=== PATIENT | male | born 1960 | race Caucasian/White ===

== ENCOUNTER 2018-07-05 11:28 | Emergency (ER) | payer MEDICAID ==
--- NOTE | 2018-07-05 11:28 | EDM.PDOC ---
ED HPI GENERAL MEDICAL PROBLEM - General Stated Complaint: AMBULANCE Time Seen by Provider: 07/05/18 11:28 Source of Information: Reports: Patient, EMS, EMS Notes Reviewed, RN, RN Notes Reviewed History Limitations: Reports: No Limitations - History of Present Illness INITIAL COMMENTS - FREE TEXT/NARRATIVE: Pt to ER per [facility] with c/o dizziness and weakness. Pt states he had fish on Friday night and began vomiting shortly after. States hx DMII. Upon arrival patient is nauseated, answering questions appropriately. Became unresponsive, apneic, HR down to 40's from 50's. Pt arousable with sternal rub. Patient moved to room 1. Onset: Gradual Onset Date: 07/03/18 - Related Data Allergies Allergy/AdvReac Type Severity Reaction Status Date / Time aspirin Allergy Stomach Verified 07/05/18 11:40 Upset Home Meds: Home Meds Insulin Detemir [Levemir] 40 unit SQ DAILY 09/10/14 [History] Metoprolol Succinate [Toprol XL 100mg] 100 mg PO DAILY 11/22/15 [History] amLODIPine [Norvasc] 5 mg PO DAILY 11/22/15 [History] Aspirin 81 mg PO DAILY 12/01/15 [History] Hydrochlorothiazide 25 mg PO DAILY #30 tablet 12/12/15 [Rx] Insulin Aspart [NovoLOG] 30 unit SUBCUT TIDAC 07/05/18 [History] Past Medical History HEENT History: Reports: Impaired Vision, Other (See Below) Other HEENT History: SCAR ON THE SCLERA OF THE LEFT EYE Cardiovascular History: Reports: High Cholesterol, Hypertension Genitourinary History: Reports: Acute Renal Failure, Diabetic Nephropathy, Renal Calculus, Other (See Below) Other Genitourinary History: NO LONGER RECEIVING DIALYSIS Musculoskeletal History: Reports: Back Pain, Chronic, Gout, Other (See Below) Other Musculoskeletal History: CHRONIC PAIN IN RIGHT KNEE Neurological History: Reports: None Psychiatric History: Reports: None Endocrine/Metabolic History: Reports: Diabetes, Type II Hematologic History: Reports: None Immunologic History: Reports: None Oncologic (Cancer) History: Reports: None Dermatologic History: Reports: Cellulitis - Infectious Disease History Infectious Disease History: Reports: Chicken Pox, Measles, Mumps - Past Surgical History Head Surgeries/Procedures: Reports: None HEENT Surgical History: Reports: None Cardiovascular Surgical History: Reports: None Male Surgical History: Reports: None Endocrine Surgical History: Reports: None Social & Family History - Family History Family Medical History: Noncontributory ED ROS GENERAL - Review of Systems Review Of Systems: ROS reveals no pertinent complaints other than HPI. ED EXAM, GENERAL - Physical Exam Exam: See Below Exam Limited By: Altered Mental Status General Appearance: Lethargic, Mild Distress Eye Exam: Bilateral Eye: PERRL (2, sluggish) Ears: Normal External Exam, Hearing Grossly Normal Nose: Normal Inspection Throat/Mouth: Normal Inspection, Normal Lips, Normal Oropharynx, Normal Voice, No Airway Compromise Head: Atraumatic, Normocephalic Neck: Normal Inspection, Supple, Non-Tender Respiratory/Chest: No Respiratory Distress, No Accessory Muscle Use, Chest Non- Tender, Decreased Breath Sounds, Other (apneic at times) Cardiovascular: Regular Rate, Rhythm, No Edema, No Gallop, No JVD, No Murmur, No Rub, Bradycardia Peripheral Pulses: 1+: Radial (L), Radial (R), Dorsalis Pedis (L), Dorsalis Pedis (R) GI/Abdominal: Normal Bowel Sounds, Soft, Non-Tender (Male) Exam: Deferred Rectal (Males) Exam: Deferred Back Exam: Normal Inspection, Decreased Range of Motion Extremities: Normal Inspection, Normal Range of Motion, Non-Tender, No Pedal Edema, Normal Capillary Refill Neurological: Slow to Respond, Unresponsive (arousable with sternal rub) Psychiatric: Normal Affect, Normal Mood Skin Exam: Warm, Dry, Intact, No Rash, Other (dusky color) Lymphatic: No Adenopathy Course - Vital Signs Last Recorded V/S: Last Vital Signs Temp 97 F 07/05/18 13:02 Pulse 52 L 07/05/18 13:02 Resp 12 07/05/18 13:02 BP 160/60 H 07/05/18 13:05 Pulse Ox 100 07/05/18 13:02 - Orders/Labs/Meds Orders: Active Orders 24 hr Category Date Time Status Blood Glucose Check, Bedside [RC] ONETIME Care 07/05/18 12:58 Active Blood Glucose Check, Bedside [RC] ONETIME Care 07/05/18 12:58 Active EKG Documentation Completion [RC] STAT Care 07/05/18 11:58 Active Peripheral IV Care [RC] . DIRECTED Care 07/05/18 11:31 Active Chest 1V Frontal [CR] Stat Exams 07/05/18 11:59 Ordered Head wo Cont [CT] Stat Exams 07/05/18 12:22 Ordered CULTURE BLOOD [BC] Stat Lab 07/05/18 11:38 Received CULTURE BLOOD [BC] Stat Lab 07/05/18 13:49 Received Sodium Chloride 0.9% [Saline Flush] Med 07/05/18 11:30 Active 10 ml FLUSH ASDIRECTED PRN Blood Culture x2 Reflex Set [OM.PC] Stat Oth 07/05/18 11:30 Ordered Peripheral IV Insertion Adult [OM.PC] Stat Oth 07/05/18 11:30 Ordered Medication Orders Sodium Chloride (Saline Flush) 10 ml FLUSH ASDIRECTED PRN PRN Reason: Keep Vein Open Last Admin: 07/05/18 12:33 Dose: 10 ml Admin: 07/05/18 12:30 Dose: 10 ml Labs: Laboratory Tests 07/05/18 07/05/18 07/05/18 Range/Units 11:38 11:38 11:38 WBC 7.3 (5.0-10.0) 10^3/uL RBC 5.81 (4.6-6.2) 10^6/uL Hgb 17.1 D (14.0-18.0) g/dL Hct 49.9 (40.0-54.0) % MCV 85.9 (80-100) fL MCH 29.4 (27.0-34.0) pg MCHC 34.3 (33.0-35.0) g/dL Plt Count 255 (150-450) 10^3/uL Neut % (Auto) 64.1 (42.2-75.2) % Lymph % (Auto) 26.6 (20.5-50.1) % [place] % (Auto) 5.9 (2-8) % Eos % (Auto) 2.7 (1.0-3.0) % Baso % (Auto) 0.7 (0.0-1.0) % ABG pH (7.35-7.45) ABG pCO2 (35-45) mmHg ABG pO2 (70-100) mmHg ABG HCO3 (22-26) mmol/L ABG O2 Saturation (95-100) % ABG Base Excess ((-2)-(+3)) mmol/L Elie Test O2 Delivery Device Oxygen Flow Rate Sodium 136 (135-145) mmol/L Potassium 3.9 (3.6-5.0) mmol/L Chloride 101 (101-111) mmol/L Carbon Dioxide 22.0 (21.0-31.0) mmol/L Anion Gap 16.9 BUN 31 H (7-18) mg/dL Creatinine 2.4 H (0.6-1.3) mg/dL Est Cr Clr Drug Dosing 37.45 mL/min Estimated GFR (MDRD) 28 BUN/Creatinine Ratio 12.91 Glucose 188 H (74-105) mg/dL POC Glucose (70-105) mg/dl Lactic Acid 2.9 H (0.5-2.2) mmol/L Calcium 8.9 (8.4-10.2) mg/dl Magnesium (1.8-2.5) mg/dL Total Bilirubin 0.8 (0.2-1.0) mg/dL AST 23 (10-42) IU/L ALT 12 (10-60) IU/L Alkaline Phosphatase 72 (42-121) IU/L Troponin I (0.00-0.02) ng/ml B-Natriuretic Peptide (0-100) pg/ml Total Protein 7.4 (6.7-8.2) g/dl Albumin 3.3 (3.2-5.5) g/dl Globulin 4.1 Albumin/Globulin Ratio 0.80 Urine Color (YELLOW) Urine Appearance (CLEAR) Urine pH (5.0-9.0) Ur Specific Metaline (1.005-1.030) Urine Protein (NEGATIVE) Urine Glucose (UA) (NEGATIVE) Urine Ketones (NEGATIVE) Urine Occult Blood (NEGATIVE) Urine Nitrite (NEGATIVE) Urine Bilirubin (NEGATIVE) Urine Urobilinogen (0.2-1.0) mg/dL Ur Leukocyte Esterase (NEGATIVE) Urine RBC /HPF Urine WBC (0-5/HPF) /HPF Ur Epithelial Cells /HPF Urine Bacteria (0-FEW/HPF) /HPF Hyaline Casts /LPF Urine Mucus /LPF Urine Opiates Screen (NEGATIVE) Ur Oxycodone Screen (NEGATIVE) Urine Methadone Screen (NEGATIVE) Ur Barbiturates Screen (NEGATIVE) U Tricyclic Antidepress (NEGATIVE) Ur Phencyclidine Scrn (NEGATIVE) Ur Amphetamine Screen (NEGATIVE) U Methamphetamines Scrn (NEGATIVE) Urine MDMA Screen (NEGATIVE) U Benzodiazepines Scrn (NEGATIVE) Urine Cocaine Screen (NEGATIVE) U Marijuana (THC) Screen (NEGATIVE) Ethyl Alcohol mg/dL 07/05/18 07/05/18 07/05/18 Range/Units 11:38 11:54 12:11 WBC (5.0-10.0) 10^3/uL RBC (4.6-6.2) 10^6/uL Hgb (14.0-18.0) g/dL Hct (40.0-54.0) % MCV (80-100) fL MCH (27.0-34.0) pg MCHC (33.0-35.0) g/dL Plt Count (150-450) 10^3/uL Neut % (Auto) (42.2-75.2) % Lymph % (Auto) (20.5-50.1) % [place] % (Auto) (2-8) % Eos % (Auto) (1.0-3.0) % Baso % (Auto) (0.0-1.0) % ABG pH (7.35-7.45) ABG pCO2 (35-45) mmHg ABG pO2 (70-100) mmHg ABG HCO3 (22-26) mmol/L ABG O2 Saturation (95-100) % ABG Base Excess ((-2)-(+3)) mmol/L Elie Test O2 Delivery Device Oxygen Flow Rate Sodium (135-145) mmol/L Potassium (3.6-5.0) mmol/L Chloride (101-111) mmol/L Carbon Dioxide (21.0-31.0) mmol/L Anion Gap BUN (7-18) mg/dL Creatinine (0.6-1.3) mg/dL Est Cr Clr Drug Dosing mL/min Estimated GFR (MDRD) BUN/Creatinine Ratio Glucose (74-105) mg/dL POC Glucose 156 H (70-105) mg/dl Lactic Acid (0.5-2.2) mmol/L Calcium (8.4-10.2) mg/dl Magnesium 1.8 (1.8-2.5) mg/dL Total Bilirubin (0.2-1.0) mg/dL AST (10-42) IU/L ALT (10-60) IU/L Alkaline Phosphatase (42-121) IU/L Troponin I 0.02 (0.00-0.02) ng/ml B-Natriuretic Peptide 223 H (0-100) pg/ml Total Protein (6.7-8.2) g/dl Albumin (3.2-5.5) g/dl Globulin Albumin/Globulin Ratio Urine Color Yellow (YELLOW) Urine Appearance Slightly cloudy (CLEAR) Urine pH 6.0 (5.0-9.0) Ur Specific Metaline 1.025 (1.005-1.030) Urine Protein >=300 H (NEGATIVE) Urine Glucose (UA) 500 H (NEGATIVE) Urine Ketones 15 H (NEGATIVE) Urine Occult Blood Moderate H (NEGATIVE) Urine Nitrite Negative (NEGATIVE) Urine Bilirubin Negative (NEGATIVE) Urine Urobilinogen 1.0 (0.2-1.0) mg/dL Ur Leukocyte Esterase Negative (NEGATIVE) Urine RBC 10-20 H /HPF Urine WBC 0-5 (0-5/HPF) /HPF Ur Epithelial Cells Many H /HPF Urine Bacteria Rare (0-FEW/HPF) /HPF Hyaline Casts Few H /LPF Urine Mucus Few H /LPF Urine Opiates Screen (NEGATIVE) Ur Oxycodone Screen (NEGATIVE) Urine Methadone Screen (NEGATIVE) Ur Barbiturates Screen (NEGATIVE) U Tricyclic Antidepress (NEGATIVE) Ur Phencyclidine Scrn (NEGATIVE) Ur Amphetamine Screen (NEGATIVE) U Methamphetamines Scrn (NEGATIVE) Urine MDMA Screen (NEGATIVE) U Benzodiazepines Scrn (NEGATIVE) Urine Cocaine Screen (NEGATIVE) U Marijuana (THC) Screen (NEGATIVE) Ethyl Alcohol < 5 mg/dL 07/05/18 07/05/18 07/05/18 Range/Units 12:11 12:20 12:59 WBC (5.0-10.0) 10^3/uL RBC (4.6-6.2) 10^6/uL Hgb (14.0-18.0) g/dL Hct (40.0-54.0) % MCV (80-100) fL MCH (27.0-34.0) pg MCHC (33.0-35.0) g/dL Plt Count (150-450) 10^3/uL Neut % (Auto) (42.2-75.2) % Lymph % (Auto) (20.5-50.1) % [place] % (Auto) (2-8) % Eos % (Auto) (1.0-3.0) % Baso % (Auto) (0.0-1.0) % ABG pH 7.40 (7.35-7.45) ABG pCO2 43 (35-45) mmHg ABG pO2 55 L (70-100) mmHg ABG HCO3 26.1 H (22-26) mmol/L ABG O2 Saturation 86 L (95-100) % ABG Base Excess 2 ((-2)-(+3)) mmol/L Elie Test nn O2 Delivery Device Simple mask Oxygen Flow Rate 15 Sodium (135-145) mmol/L Potassium (3.6-5.0) mmol/L Chloride (101-111) mmol/L Carbon Dioxide (21.0-31.0) mmol/L Anion Gap BUN (7-18) mg/dL Creatinine (0.6-1.3) mg/dL Est Cr Clr Drug Dosing mL/min Estimated GFR (MDRD) BUN/Creatinine Ratio Glucose (74-105) mg/dL POC Glucose 116 H (70-105) mg/dl Lactic Acid (0.5-2.2) mmol/L Calcium (8.4-10.2) mg/dl Magnesium (1.8-2.5) mg/dL Total Bilirubin (0.2-1.0) mg/dL AST (10-42) IU/L ALT (10-60) IU/L Alkaline Phosphatase (42-121) IU/L Troponin I (0.00-0.02) ng/ml B-Natriuretic Peptide (0-100) pg/ml Total Protein (6.7-8.2) g/dl Albumin (3.2-5.5) g/dl Globulin Albumin/Globulin Ratio Urine Color (YELLOW) Urine Appearance (CLEAR) Urine pH (5.0-9.0) Ur Specific Metaline (1.005-1.030) Urine Protein (NEGATIVE) Urine Glucose (UA) (NEGATIVE) Urine Ketones (NEGATIVE) Urine Occult Blood (NEGATIVE) Urine Nitrite (NEGATIVE) Urine Bilirubin (NEGATIVE) Urine Urobilinogen (0.2-1.0) mg/dL Ur Leukocyte Esterase (NEGATIVE) Urine RBC /HPF Urine WBC (0-5/HPF) /HPF Ur Epithelial Cells /HPF Urine Bacteria (0-FEW/HPF) /HPF Hyaline Casts /LPF Urine Mucus /LPF Urine Opiates Screen Negative (NEGATIVE) Ur Oxycodone Screen Negative (NEGATIVE) Urine Methadone Screen Negative (NEGATIVE) Ur Barbiturates Screen Negative (NEGATIVE) U Tricyclic Antidepress Negative (NEGATIVE) Ur Phencyclidine Scrn Negative (NEGATIVE) Ur Amphetamine Screen Negative (NEGATIVE) U Methamphetamines Scrn Negative (NEGATIVE) Urine MDMA Screen Negative (NEGATIVE) U Benzodiazepines Scrn Negative (NEGATIVE) Urine Cocaine Screen Negative (NEGATIVE) U Marijuana (THC) Screen Negative (NEGATIVE) Ethyl Alcohol mg/dL Meds: Medications Generic Name Dose Route Start Last Admin Trade Name Freq PRN Reason Stop Dose Admin Sodium Chloride 10 ml 07/05/18 11:30 07/05/18 12:33 Saline Flush FLUSH 10 ml ASDIRECTED PRN Administration Keep Vein Open Discontinued Medications Generic Name Dose Route Start Last Admin Trade Name Freq PRN Reason Stop Dose Admin Lactated Ringer's 1,000 mls @ 999 mls/hr 07/05/18 11:48 07/05/18 12:57 Ringers, Lactated IV 07/05/18 12:48 999 mls/hr .BOLUS ONE Administration Sodium Chloride 1,000 mls @ 999 mls/hr 07/05/18 12:30 07/05/18 11:55 Normal Saline IV 07/05/18 13:30 999 mls/hr .BOLUS ONE Administration Ondansetron HCl 4 mg 07/05/18 11:48 07/05/18 12:32 Zofran IV 07/05/18 11:49 4 mg ONETIME ONE Administration - Radiology Interpretation Free Text/Narrative:: Chest xray: IMPRESSION: The heart is enlarged. No evidence of acute pulmonary process. Thank you for allowing us to participate in the care of your patient. Dictated and Authenticated by: Mary Kay Rooney MD 07/05/2018 1:22 PM Central Time ([place] & [place]) Head CT: FINDINGS: Brain: Prominent sulci. Patchy hypodensity of the cerebral white matter which are nonspecific but likely secondary to microangiopathic changes. Left cerebellar infarct, possibly subacute. Ventricles: The ventricles are prominent secondary to diffuse volume loss/ atrophy. Bones/joints: Unremarkable. No acute fracture. Sinuses: Visualized sinuses are unremarkable. No acute sinusitis. Mastoid air cells: Visualized mastoid air cells are unremarkable. No mastoid effusion. Soft tissues: Unremarkable. IMPRESSION: Left cerebellar infarct, possibly subacute. Remainder of findings as described above. These findings were discussed with Vonnie Villela at 2:15 PM EST. Thank you for allowing us to participate in the care of your patient. Dictated and Authenticated by: Mary Kay Rooney MD 07/05/2018 1:16 PM Central Time ([place] & [place]) See rad report - Re-Assessments/Exams Free Text/Narrative Re-Assessment/Exam: 07/05/18 13:52 Patient case discussed with Ibeth Copeland who talked with Dr. Faith, Neurology. Dr. Faith states the patient needs ICU and Ibeth is on ICU diversion at this time. Patient case discussed with Dr. Winslow, Neurology at [facility] who states the patient does need to be monitored for further swelling or expansion of the infarct. He states he would like the patient to come through the ER to be evaluated as the patient continues to be unstable at times. Patient case was then discussed with Dr. Winslow as and Dr. Madsen, ER physician. Dr. Madsen accepted the patient for transfer to the ER at [facility] in [place]. 07/05/18 13:59 NIH score was 2. 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 Diabetes mellitus complication status: without complication Qualified Code(s): E11.9 - Type 2 diabetes mellitus without complications Chronic renal failure Qualifiers: Chronic kidney disease stage: unspecified stage Qualified Code(s): N18.9 - Chronic kidney disease, unspecified - Discharge Information *PRESCRIPTION DRUG MONITORING PROGRAM REVIEWED*: No *COPY OF PRESCRIPTION DRUG MONITORING REPORT IN PATIENT BA: No Forms: ED Department Discharge, Interfacility Transfer EMTALA - My Orders Last 24 Hours: My Active Orders 07/05/18 11:30 Sodium Chloride 0.9% [Saline Flush] 10 ml FLUSH ASDIRECTED PRN Blood Culture x2 Reflex Set [OM.PC] Stat Peripheral IV Insertion Adult [OM.PC] Stat 07/05/18 11:31 Peripheral IV Care [RC] . DIRECTED 07/05/18 11:38 CULTURE BLOOD [BC] Stat 07/05/18 11:58 EKG Documentation Completion [RC] STAT 07/05/18 11:59 Chest 1V Frontal [CR] Stat 07/05/18 12:22 Head wo Cont [CT] Stat 07/05/18 12:58 Blood Glucose Check, Bedside [RC] ONETIME Blood Glucose Check, Bedside [RC] ONETIME 07/05/18 13:49 CULTURE BLOOD [BC] Stat - Assessment/Plan Last 24 Hours: My Active Orders 07/05/18 11:30 Sodium Chloride 0.9% [Saline Flush] 10 ml FLUSH ASDIRECTED PRN Blood Culture x2 Reflex Set [OM.PC] Stat Peripheral IV Insertion Adult [OM.PC] Stat 07/05/18 11:31 Peripheral IV Care [RC] . DIRECTED 07/05/18 11:38 CULTURE BLOOD [BC] Stat 07/05/18 11:58 EKG Documentation Completion [RC] STAT 07/05/18 11:59 Chest 1V Frontal [CR] Stat 07/05/18 12:22 Head wo Cont [CT] Stat 07/05/18 12:58 Blood Glucose Check, Bedside [RC] ONETIME Blood Glucose Check, Bedside [RC] ONETIME 07/05/18 13:49 CULTURE BLOOD [BC] Stat
[2018-07-05] MEDS ORDERED: Ondansetron 4 MG/2 ML SDV IV ONE (11:48)
[2018-07-05] MEDS ORDERED: Lactated Ringers 1,000 ML IV ONE (11:48)
[2018-07-05 12:09] LABS: ANION GAP 16.9
[2018-07-05 12:24] LABS: BASE EXCESS ARTERIAL 2 mmol/L ((-2)-(+3)); BICARBONATE,ARTERIAL 26.1 mmol/L (22-26); O2 DELIVERY DEVICE SIMPLE MASK; O2 SATURATION ARTERIAL 86 % (95-100); PCO2 ARTERIAL 43 mmHg (35-45); PO2 ARTERIAL 55 mmHg (70-100)
[2018-07-05 12:26] LABS: O2 FLOW RATE 15
[2018-07-05] MEDS ORDERED: Sodium Chloride 0.9% 1,000 ML IV ONE (12:30)
[2018-07-05] MEDS: Sodium Chloride 0.9% 10 ML Syringe FLUSH PRN ×2 (12:30→12:33)
[2018-07-05 13:05] VITALS: PULSE 52
[2018-07-05 13:07] VITALS: BP 160/60
== END 2018-07-05 14:21 ==
LOC: DL.ED 11:28
DX: I63.549 Cerebral infarction due to unspecified occlusion or stenosis of unspecified cerebellar artery (principal); I12.9 Hypertensive chronic kidney disease with stage 1 through stage 4 chronic kidney disease, or unspecified chronic kidney disease; N18.9 Chronic kidney disease, unspecified; E11.22 Type 2 diabetes mellitus with diabetic chronic kidney disease; E78.00 Pure hypercholesterolemia, unspecified; E11.21 Type 2 diabetes mellitus with diabetic nephropathy; Z88.8 Allergy status to other drugs, medicaments and biological substances; Z79.899 Other long term (current) drug therapy; Z79.4 Long term (current) use of insulin; Z79.82 Long term (current) use of aspirin
CPT/HCPCS: 36415; 36600; 70450; 71045; 80053; 80305; 81001; 82803; 82962; 83605; 83735; 83880; 84484; 85025; 87040; 93005; 96361; 96374; 99285; G0480; J2405; J7030; J7120